=== PATIENT | male | born 1960 ===

== ENCOUNTER 2016-11-08 20:22 | Emergency (ER) | payer SELFPAY ==
[2016-11-08 20:32] VITALS: TEMP 98.5
[2016-11-08] MEDS ORDERED: Sodium Chloride 0.9% 1,000 ML IV STA ×2 (20:41→23:07)
--- NOTE | 2016-11-08 20:44 | ED PDOC ---
Syncope/Near Syncope/Dizziness Time Seen by Provider: 11/08/16 20:30 Chief Complaint (Nursing): Dizziness/Lightheaded Chief Complaint (Provider): DIZZINESS/VOMITING History Per: Patient (56 Y/O MALE HERE FOR EVALUATION OF VOMITING TODAY THAT OCCURRED AFTER BINGE DRINKING YESTERDAY. DENIES ANY CHEST PAIN/ABDOMINAL PAIN. NOTES DIZZINESS AND SENSATION OF GENERALIZED WEAKNESS. DENIE ANY H/O TN OR CVA. NO H/O SMOKING/IVDA. DENIES DRINKING DAILY.) Past Medical History Reviewed: Historical Data, Nursing Documentation, Vital Signs Vital Signs: Last Vital Signs Temp 98.5 F 11/08/16 20:27 Pulse 98 H 11/08/16 20:27 Resp 20 11/08/16 20:27 BP 195/118 H 11/08/16 20:27 Pulse Ox 98 11/08/16 20:27 - Family History Family History: States: No Known Family Hx - Home Medications Home Medications: Ambulatory Orders Medication Instructions Recorded Famotidine [Pepcid] 20 mg PO BID #10 tab 11/09/16 Ondansetron ODT [Zofran ODT] 4 mg PO Q8 PRN #8 odt 11/09/16 - Allergies Allergies/Adverse Reactions: Allergies Allergy/AdvReac Type Severity Reaction Status Date / Time No Known Allergies Allergy Verified 11/08/16 20:32 Review of Systems ROS Statement: Except As Marked, All Systems Reviewed And Found Negative Physical Exam - Reviewed Nursing Documentation Reviewed: Yes Vital Signs Reviewed: Yes - Physical Exam Appears: Positive for: Well, Non-toxic, No Acute Distress Head Exam: Positive for: ATRAUMATIC, NORMAL INSPECTION, NORMOCEPHALIC Skin: Positive for: Normal Color, Warm, DRY Eye Exam: Positive for: EOMI, Normal appearance, PERRL ENT: Positive for: Normal ENT Inspection Neck: Positive for: Normal, Painless ROM Cardiovascular/Chest: Positive for: Regular Rate, Rhythm Respiratory: Positive for: CNT, Normal Breath Sounds Gastrointestinal/Abdominal: Positive for: Normal Exam, Bowel Sounds, Soft Back: Positive for: Normal Inspection Extremity: Positive for: Normal ROM Neurologic/Psych: Positive for: Alert, Oriented - Laboratory Results Result Diagrams: 11/08/16 21:11 11/08/16 21:11 Urine dip results: Negative for: Leukocyte Esterase, Blood, Nitrate, Ketones, Glucose, Bilirubin, Protein - ECG O2 Sat by Pulse Oximetry: 98 - Progress ED Course And Treament: ativan 0.5 mg iv x 1 dose pepcid 20 mg iv x 1 dose zofran 4 mg iv x 1 dose NS 1 liter wide open x 2 Mg 1 gm iv x 1 dose KDUR 40 meq x 1 dose Patient appears improved. Disposition - Clinical Impression Clinical Impression: Alcoholic gastritis - Patient ED Disposition Is Patient to be Admitted: No - Disposition [facility]errals[facility]] Disposition: Routine/Home Disposition Time: 00:31 Condition: FAIR Prescriptions: Famotidine [Pepcid] 20 mg PO BID #10 tab Ondansetron ODT [Zofran ODT] 4 mg PO Q8 PRN #8 odt PRN Reason: Nausea/Vomiting Instructions: Gastritis (DC), At-Risk Alcohol Use (ED), Hypokalemia (ED), Hypomagnesemia (ED) Forms: [facility] ([place]) Print Language: LITHUANIAN
[2016-11-08 21:20] VITALS: RESP 16
[2016-11-08 21:21] LABS: BASO % 0.4 % (0.0-2.0); EOS % 0.2 % (0.0-4.0); LYMPH # 0.8 K/uL (1.0-4.3); LYMPH % 6.7 % (20.0-40.0); MEAN CELL VOLUME 83.2 fl (80.0-94.0); MEAN CORPUSCULAR HEMOGLOBIN 27.8 pg (27.0-31.0); MEAN CORPUSCULAR HGB CONC 33.3 g/dL (33.0-37.0); MEAN PLATELET VOLUME 8.3 fl (7.2-11.7); MONO # 0.7 K/uL (0.0-0.8); MONO % 5.2 % (0.0-10.0); NEUT # 11.1 K/uL (1.8-7.0); NEUT % 87.5 % (50.0-75.0); NRBC % 0.2 % (0.0-0.0); PLATELET COUNT 236 K/uL (130-400); RBC 4.68 Mil/uL (4.40-5.90); RED CELL DISTRIBUTION WIDTH 15.1 % (11.5-14.5); WHITE BLOOD COUNT 12.6 K/uL (4.8-10.8)
[2016-11-08 21:29] LABS: ALB/GLOB RATIO 1.1 (1.0-2.1); ALBUMIN 4.4 g/dL (3.5-5.0); ALT/SGPT 45 U/L (21-72); AST/SGOT 52 U/L (17-59); BLOOD UREA NITROGEN 21 mg/dl (9-20); CALCIUM 9.1 mg/dL (8.4-10.2); GFR AFRICAN-AMERICAN > 60; GFR NON-AFRICAN AMERICAN > 60; LIPASE 51 U/L (23-300); MAGNESIUM 1.6 MG/DL (1.6-2.3)
[2016-11-08 22:37] LABS: LYMPHOCYTE 7 % (20-50); MONOCYTE 6 % (0-10); NEUTROPHIL 87 % (42-75); PLATELET ESTIMATE NORMAL (NORMAL); TOTAL CELLS COUNTED 100
[2016-11-08] MEDS ORDERED: Potassium Chloride 20 mEq ER Tab PO ONE ×2 (22:49→23:10)
[2016-11-08 23:00] VITALS: O2SAT 98
[2016-11-08 23:52] LABS: SQUAMOUS EPITHIAL < 1 /hpf (0-5); URINE BACTERIA RARE (<OCC); URINE BILIRUBIN NEGATIVE (NEGATIVE); URINE BLOOD NEGATIVE (NEGATIVE); URINE CLARITY CLEAR (Clear); URINE COLOR YELLOW (YELLOW); URINE GLUCOSE (UA) NEG (Normal); URINE LEUKOCYTE ESTERASE NEG Leu/uL (Negative); URINE NITRATE NEGATIVE (NEGATIVE); URINE PROTEIN NEGATIVE (NEGATIVE); URINE UROBILINOGEN 0.2-1.0 mg/dL (0.2-1.0)
[2016-11-09 01:13] VITALS: BP 168/82; PULSE 69
--- NOTE | 2016-11-09 10:17 | CARD ---
APPROVED REPORT EKG Measurement Heart [id number] <Conclusion> Normal sinus rhythm Nonspecific ST abnormality Abnormal ECG
== END 2016-11-09 01:24 | disposition home or self-care (01) ==
LOC: H.ER 20:22
DX: K29.20 Alcoholic gastritis without bleeding (principal)
CPT/HCPCS: 80053; 81003; 83690; 83735; 84484; 85025; 93005; 96361; 96365; 96375; 99284; G0480; J2405; J3475; J7040